=== PATIENT | female | born 1995 | race Caucasian/White ===

== ENCOUNTER 2018-05-15 08:14 | Emergency (ER) | payer OTHER ==
[~2018-05-15] VITALS: Ht 157.5 cm; Wt 88.9 kg
[2018-05-15] MEDS ORDERED: JOLESSA1 EACH PO (08:33)
[2018-05-15] MEDS ORDERED: FISH OIL 1,001000 M2 PO (08:33)
[2018-05-15] MEDS ORDERED: BENTYL 10 MG CA10 M1 PO (08:34)
[2018-05-15] MEDS ORDERED: SINGULAIR 10 MG10 M1 PO (08:34)
[2018-05-15] MEDS ORDERED: ZANTAC 150MG T150 MG PO (08:34)
[2018-05-15] MEDS ORDERED: DILTIAZEM 24HR120 M2 PO (08:34)
[2018-05-15] MEDS ORDERED: DEXILANT60 MG PO (08:35)
[2018-05-15] MEDS ORDERED: VENTOLIN HFA 1818 GM INH (08:35)
[2018-05-15] MEDS ORDERED: FLONASE 0.05%50 MCG NASAL (08:35)
[2018-05-15] MEDS ORDERED: HYDROCODONE-AP1 EAC6 PO (09:30)
[2018-05-15 10:02] VITALS: BP 117/72
== END 2018-05-15 10:02 | disposition home or self-care (01) ==
LOC: M.ERS 08:14
DX: S63.611A Unspecified sprain of left index finger, initial encounter (principal); S63.642A Sprain of metacarpophalangeal joint of left thumb, initial encounter; V89.2XXA Person injured in unspecified motor-vehicle accident, traffic, initial encounter; Y93.89 Activity, other specified; Y92.89 Other specified places as the place of occurrence of the external cause; Y99.8 Other external cause status; J45.909 Unspecified asthma, uncomplicated; K21.9 Gastro-esophageal reflux disease without esophagitis; G43.909 Migraine, unspecified, not intractable, without status migrainosus; Z90.49 Acquired absence of other specified parts of digestive tract; Z91.011 Allergy to milk products